=== PATIENT | male | born 1950 ===

== ENCOUNTER 2023-03-25 08:21 | Day surgery (SDC) | payer OTHER ==
[~2023-03-25 08:21] MED LIST: ACID REDUCER20 M1 PO; AMLOD PO; ATORVASTATIN CA20 MG PO; HYDROCHLOROTHIA50 MG PO; LOSARTAN-HCTZ1 EAC2 PO; TAMS0.4C PO
== END 2023-03-25 14:35 | disposition home or self-care (01) ==
LOC: CIR.AMB 08:21
PROVIDERS: ATTEND Orthopaedic Surgery
DX: M75.122 Complete rotator cuff tear or rupture of left shoulder, not specified as traumatic (principal); M75.22 Bicipital tendinitis, left shoulder; M24.112 Other articular cartilage disorders, left shoulder; Z20.822 Contact with and (suspected) exposure to COVID-19